=== PATIENT | female | born 1985 | race Caucasian/White ===

== ENCOUNTER 2020-08-04 21:08 | Inpatient (IN) | payer MEDICAID, SELFPAY ==
[~2020-08-04] VITALS: Ht 157.5 cm; Wt 65.8 kg
[2020-08-04 21:25] VITALS: BP 107/62
--- NOTE | 2020-08-04 21:25 | NUR ---
patient bib for RUQ abdominal pain rad. to the right upper back x 1 hour ago. denies n/v/d. no changes in appetite. last meal was an hour ago. A/ox4; GCS 15 pain is a 10/10 pain; skin slightly jaundiced, but intact. breathing unlabored and symmetrical. abdomen soft and nondistended; bowel sounds heard on all four quadrants. slight tenderness upon palpation on the RUQ. ambulates with steady gait. present. ERMD made aware of status. NKDA Hx: Valve replacement 02/2020
[2020-08-04] MEDS ORDERED: ONDANSETRON 4 MG ODT PO ONE (22:10)
[2020-08-04] MEDS ORDERED: HYDROcodone/APAP 5/325 MG 1 TAB TAB PO ONE (22:10)
[2020-08-04] MEDS ORDERED: FAMOTIDINE 20 MG TAB PO ONE (22:15)
[2020-08-04 22:42] LABS: BASOPHILS # (AUTO) 0.1 K/uL (0.00-0.22); BASOPHILS % (AUTO) 0.7 % (0.0-2.0); EOSINOPHILS # (AUTO) 0.1 K/uL (0-0.4); EOSINOPHILS % (AUTO) 0.6 % (0.0-4.0); HEMATOCRIT 29.1 % (36-48); HEMOGLOBIN 8.9 g/dL (12.0-16.0); LYMPHOCYTES # (AUTO) 1.7 K/uL (2.5-16.5); LYMPHOCYTES % (AUTO) 12.5 % (20.5-51.1); MEAN CORPUSCULAR HEMOGLOBIN 23 pg (27-31); MEAN CORPUSCULAR HGB CONC 31 g/dL (33-37); MEAN CORPUSCULAR VOLUME 73.3 fL (80-94); MONOCYTES # (AUTO) 0.7 K/uL (0.8-1.0); MONOCYTES % (AUTO) 5.2 % (1.7-9.3); NEUTROPHILS # (AUTO) 10.8 K/uL (1.8-7.7); PLATELET COUNT (AUTO) 344 K/uL (140-450); RED BLOOD CELL COUNT(AUTO) 3.97 MIL/uL (4.20-5.40); RED CELL DISTRIBUTION WIDTH 16.9 % (11.6-13.7); WHITE BLOOD COUNT (AUTO) 13.3 K/uL (4.8-10.8)
[2020-08-04] MEDS ORDERED: LACTATED RINGERS 1,000 ML IV ONE (22:50)
[2020-08-04] MEDS ORDERED: ONDANSETRON 4 MG/2 ML VIAL IVP ONE (22:50)
[2020-08-04] MEDS ORDERED: MORPHINE SULFATE 4 MG/ML SYR IVP ONE (22:50)
--- NOTE | 2020-08-04 22:55 | NUR ---
patient is in lobby.
--- NOTE | 2020-08-04 22:55 | NUR ---
patient tolerated po meds
[2020-08-04 22:58] LABS: CREATININE 0.7 mg/dL (0.6-1.3); TOTAL BILIRUBIN 0.3 mg/dL (0.0-1.0)
[2020-08-05] MEDS ORDERED: metroNIDAZOLE 500 MG/NS PREMIX 100 ML IV ONE ×2 (00:55→04:22)
[2020-08-05 01:07] LABS: ALBUMIN 3.6 g/dL (3.4-5.0); ANION GAP 14.1 (8-16); CARBON DIOXIDE 24.5 mmol/L (21-32); POTASSIUM 3.6 mmol/L (3.5-5.1)
[2020-08-05] MEDS ORDERED: KETOROLAC 30 MG/ML VIAL IM ONE (02:05)
[2020-08-05] MEDS ORDERED: ONDANSETRON 4 MG ODT PO ONE (02:05)
[2020-08-05 02:38] LABS: PROTHROMBIN TIME 14.9 secs (10.8-13.4)
--- NOTE | 2020-08-05 03:50 | NUR ---
PT MOVED TO CHAIR B
[2020-08-05] MEDS ORDERED: cefTRIAXone 1,000 MG VIAL ONE (03:51)
[2020-08-05] MEDS ORDERED: ONDANSETRON 4 MG/2 ML VIAL ONE (03:51)
[2020-08-05] MEDS ORDERED: MORPHINE SULFATE 4 MG/ML SYR ONE (03:51)
[2020-08-05] MEDS: DEXT 5% / NACL 0.45% 1,000 ML IV SCH ×3 (04:08→22:20)
--- NOTE | 2020-08-05 04:30 | NUR ---
PT SEATED UPRIGHT IN CHAIR. SEEN WITH EYES CLOSED, VISIBLE CHEST RISE AND FALL NOTED. VSS. NO C/O PAIN AT THIS TIME. WILL CONTINUE TO MONITOR.
[2020-08-05] MEDS ORDERED: PIPERACILLIN/TAZOBACTAM 3.375 GM VIAL IV ONE ×2 (05:34→22:03)
[2020-08-05] MEDS: PIPERACILLIN/TAZOBACTAM 3.375 GM in DEXTROSE 5% 50 ML IV SCH ×3 (05:41→22:14)
--- NOTE | 2020-08-05 05:57 | NUR ---
Elizabeth antigen and Novel sent to lab
[2020-08-05] MEDS ORDERED: DOCUSATE SODIUM 100 MG GELCAP PO PRN (06:45)
[2020-08-05] MEDS ORDERED: ZOLPIDEM 5 MG TAB PO PRN (06:45)
[2020-08-05] MEDS ORDERED: ONDANSETRON 4 MG/2 ML VIAL IVP PRN ×2 (06:45→17:25)
[2020-08-05] MEDS ORDERED: LORazepam 2 MG/ML VIAL IM/IVP PRN (06:45)
[2020-08-05] MEDS ORDERED: ACETAMINOPHEN 325 MG TAB PO PRN (06:45)
--- NOTE | 2020-08-05 07:07 | NUR ---
Dr. Alvarez examining patient.
--- NOTE | 2020-08-05 07:10 | NUR ---
PT AAOX4. DENIES ABDOMINAL PAIN AT THIS TIME. NOTHING BY MOUNT.
--- NOTE | 2020-08-05 07:50 | NUR ---
URINE SPECIMEN SENT TO LAB.
--- NOTE | 2020-08-05 09:27 | NUR ---
PT AMB TO BED 12.
--- NOTE | 2020-08-05 10:20 | NUR ---
PT TO NUCLEAR MED SCAN AT THIS TIME WITH TECH.
[2020-08-05 10:41] LABS: BASOPHILS # (AUTO) 0.1 K/uL (0.00-0.22); BASOPHILS % (AUTO) 0.8 % (0.0-2.0); EOSINOPHILS # (AUTO) 0.1 K/uL (0-0.4); EOSINOPHILS % (AUTO) 0.9 % (0.0-4.0); HEMATOCRIT 27.3 % (36-48); HEMOGLOBIN 8.5 g/dL (12.0-16.0); LYMPHOCYTES # (AUTO) 1.7 K/uL (2.5-16.5); LYMPHOCYTES % (AUTO) 21.1 % (20.5-51.1); MEAN CORPUSCULAR HEMOGLOBIN 23 pg (27-31); MEAN CORPUSCULAR HGB CONC 31 g/dL (33-37); MEAN CORPUSCULAR VOLUME 73.4 fL (80-94); MONOCYTES # (AUTO) 0.5 K/uL (0.8-1.0); MONOCYTES % (AUTO) 6.6 % (1.7-9.3); NEUTROPHILS # (AUTO) 5.7 K/uL (1.8-7.7); NEUTROPHILS % (AUTO) 70.6 % (42.2-75.2); PLATELET COUNT (AUTO) 330 K/uL (140-450); RED BLOOD CELL COUNT(AUTO) 3.73 MIL/uL (4.20-5.40); RED CELL DISTRIBUTION WIDTH 17.2 % (11.6-13.7); WHITE BLOOD COUNT (AUTO) 8.1 K/uL (4.8-10.8)
--- NOTE | 2020-08-05 10:41 | NUR ---
SOCIAL WORK NOTE: Patient's Orientation Unable To Assess Information Provided By PATRICIA HARE - Comments SW WAS UNABLE TO MEET PATIENT AT BEDSIDE. SW COMPLETED ASSESSMENT WITH PATIENT'S . Senior Animator, Realtionship and Phone Number VIC HARE [phone] Healthcare Power of Electrical High Tension Tester No Does Patient Have a POLST No Identifying Problems No Social Work Triggers Is A Social Work Consult Needed No Mandate Report Filed No Explanation Of Identifying Problems PATIENT IS A 35-YEAR-OLD FEMALE ADMITTED FOR ACUTE CHOLECYSTITIS. PATIENT HAS NO PERTINENT PMHX. REPORTED NO HX OF SUBSTANCE ABUSE OR MENTAL HEALTH. Admitted From Home Pre-Admission Level Of Functioning Status Independent/Ambulatory Prior Resources/Services Used In Last 12 Months No Prior Resources Used Prior DME No Prior DME Used Dialysis Comments N/A Living Situation Lives With Family House Patient Had Caregiver No Home Support No Caregiver Issues Financial Issues No Known Financial Issue Referral To The Financial Counselor Needed No Factors/Needs No D/C Needs Identified Pt/Rep Participated In Discharge Plan Yes Patient/Family Agress With Discharge Plan Yes Discharge Plan Comments TENTATIVE DISCHARGE PLAN IS FOR PATIENT TO RETURN HOME. DC Plan Status Initiated
[2020-08-05 11:16] LABS: CHOL/HDL RATIO 2.8 (1-4.5); FREE T4 (FREE THYROXINE) 1.33 ng/dL (0.76-1.46); MAGNESIUM 2.6 mg/dL (1.8-2.4); PHOSPHORUS 3.3 mg/dL (2.5-4.9); THYROID STIMULATING HORMONE 4.98 uIU/mL (0.34-3.74)
--- NOTE | 2020-08-05 11:30 | NUR ---
RETURNED FROM SCAN. IN BED, REATTACHED TO CARDIAC MONITORING. VSS.
[2020-08-05] MEDS: MORPHINE SULFATE 2 MG/ML SYR IVP PRN ×2 (11:38→21:58)
[2020-08-05 12:03] LABS: PROTHROMBIN TIME 16.1 secs (10.8-13.4)
[2020-08-05 13:44] LABS: APPEARANCE,URINE CLEAR (CLEAR); BILIRUBIN,URINE NEGATIVE (NEGATIVE); BLOOD, URINE NEGATIVE (NEGATIVE); COLOR,URINE YELLOW (YELLOW); LEUKOCYTE ESTERASE ,URINE NEGATIVE (NEGATIVE); NITRITE, URINE NEGATIVE (NEGATIVE); UGLUCOSE NEGATIVE (NEGATIVE)
[2020-08-05] MEDS ORDERED: ASPI-1129 PO (13:53)
[2020-08-05] MEDS ORDERED: WARF3TAB PO (13:53)
[2020-08-05 14:00] LABS: BARBITURATE, URINE NEGATIVE ng/ml (NEG <=200); BENZODIAZEPINE, URINE NEGATIVE ng/mL (NEG <=200); CANNABINOID, URINE NEGATIVE ng/mL (NEG <=50); COCAINE, URINE NEGATIVE ng/mL (NEG <=300); OPIATE, URINE POSITIVE ng/mL (NEG <=2000); PHENCYCLIDINE SCREEN,URINE NEGATIVE ng/mL (NEG <=25)
--- NOTE | 2020-08-05 14:00 | NUR ---
RESTING COMFORTABLY, NO NEW NEEDS OR CONCERNS.
--- NOTE | 2020-08-05 14:50 | NUR ---
PT TAKEN TO OR, REPORT GIVEN TO MAMADOU GIBSON.
[2020-08-05] MEDS ORDERED: BUPIVACAINE-MPF/EPI 0.5% 30 ML VIAL INJ ONE (16:46)
[2020-08-05] MEDS ORDERED: MIDAZOLAM 2 MG/2 ML VIAL ONE (16:50)
[2020-08-05] MEDS ORDERED: DEXAMETHASONE 4 MG/ML VIAL ONE (16:50)
[2020-08-05] MEDS ORDERED: fentaNYL citrate 0.05 MG/ML VIAL ONE (16:50)
[2020-08-05] MEDS ORDERED: PROPOFOL 200 MG/20 ML VIAL IV ONE (16:50)
[2020-08-05] MEDS ORDERED: LIDOCAINE 2% 100 MG/5 ML SYR IVP ONE (16:50)
[2020-08-05] MEDS ORDERED: SUCCINYLCHOLINE CHLORIDE 200 MG/10 ML VIAL IVP ONE (16:50)
[2020-08-05] MEDS ORDERED: SEVOFLURANE 250 ML BTL INH ONE (16:50)
[2020-08-05] MEDS: LACTATED RINGERS 1,000 ML IV SCH (17:25)
[2020-08-05] MEDS ORDERED: diphenhydrAMINE 50 MG/ML VIAL IVP PRN (17:25)
[2020-08-05] MEDS ORDERED: HYDROmorphone 1 MG/ML AMP IVP PRN (17:25)
[2020-08-05] MEDS: MEPERIDINE 25 MG/ML SYR IVP PRN ×2 (18:13→18:44)
[2020-08-05 19:30] VITALS: BP 123/79
--- NOTE | 2020-08-05 19:30 | NUR ---
RECEIVED REPORT FROM OR NURSE, TYESHA. PT AOX3 ON ROOM AIR. NO S/S RESPIRATORY DISTRESS. NO C/O PAIN AT THIS TIME. IV SITE R HAND 22G PATENT INTACT/ SKIN WARM DRY, HAS 4 SURGICAL INCISIONS WITH DERMABOND, NO DRAINAGE, NO BLEEDING. ORIENTED PT TO ROOM AND HOSPITAL. SAFETY MEASURES IN PLACE. CALL LIGHT WITHIN REACH. WILL CONTINUE TO MONITOR. VS: BP 123/79 TEMP 97.7 HR 82 RR 16 O2 SAT 100%. DX: ACUTE CHOLECYSTITIS, S/P LAP RADHA
--- NOTE | 2020-08-05 21:00 | NUR ---
ASSISTED PT TO BED BOOTH, VOIDED CLEAR YELLOW URINE, PROVIDED ROLANDO CARE. TOLERATED WELL. WILL CONTINUE TO MONITOR
--- NOTE | 2020-08-05 21:58 | NUR ---
PRN MORPHINE GIVEN FOR PT C/O 7/10 PAIN AT SURGICAL INCISION SITE AND ABD, WILL CONTINUE TO MONITOR
[2020-08-06] VITALS: BP 135/77
[2020-08-06] MEDS: LACTATED RINGERS 1,000 ML IV SCH ×3 (01:45→18:25)
[2020-08-06] MEDS: MORPHINE SULFATE 2 MG/ML SYR IVP PRN ×3 (01:56→18:28)
--- NOTE | 2020-08-06 02:05 | NUR ---
PT ASLEEP IN BED, RESPIRATIONS EVEN UNLABORED. NO S/S ACUTE DISTRESS NOTED. WILL CONTINUE TO MONITOR
[2020-08-06 04:00] VITALS: BP 99/59
[2020-08-06] MEDS ORDERED: PIPERACILLIN/TAZOBACTAM 3.375 GM VIAL IV ONE (04:33)
[2020-08-06] MEDS: PIPERACILLIN/TAZOBACTAM 3.375 GM in DEXTROSE 5% 50 ML IV SCH ×3 (04:35→20:42)
--- NOTE | 2020-08-06 07:19 | NUR ---
ENDORSED PT TO DAY RN FOR CONTINUITY OF CARE. PT IS IN STABLE CONDITION
--- NOTE | 2020-08-06 07:20 | NUR ---
RECEIVED REPORT FROM NIGHTSHIFT NURSE. PT RESTING IN BED. ABLE TO MAKE NEEDS KNOWN. RESPIRATIONS EVEN AND UNLABORED WITH NO SOB OR RESPIRATORY DISTRESS. SKIN WARM AND DRY TO TOUCH. IV IN R HAND 22G IS CLEAN, DRY, AND INTACT. SAFETY MEASURES IN PLACE. WILL CONTINUE TO MONITOR
--- NOTE | 2020-08-06 07:28 | NUR ---
PATIENT HAS BEEN SCREENED AND CATEGORIZED MODERATE NUTRITION RISK. PATIENT WILL BE SEEN WITHIN 3-5 DAYS OF ADMISSION. 08/08/20 - 08/10/20 LUIS MIGUEL ANDRADE MBA, RD
[2020-08-06 08:00] VITALS: BP 110/65
[2020-08-06] MEDS: DEXT 5% / NACL 0.45% 1,000 ML IV SCH ×2 (08:20→18:26)
--- NOTE | 2020-08-06 09:10 | NUR ---
PT RESTING IN BED. ABLE TO MAKE NEEDS KNOWN. RESPIRATIONS EVEN AND UNLABORED WITH SOB OR RESPIRATORY DISTRESS. SAFETY MEASURES IN PLACE. WILL CONTINUE TO MONITOR
[2020-08-06 10:05] LABS: MAGNESIUM 2.2 mg/dL (1.8-2.4); PHOSPHORUS 3.7 mg/dL (2.5-4.9)
[2020-08-06 10:08] LABS: ANION GAP 12.3 (8-16); CARBON DIOXIDE 25.7 mmol/L (21-32); CREATININE 0.7 mg/dL (0.6-1.3)
[2020-08-06 10:19] LABS: BASOPHILS % (AUTO) 0.2 % (0.0-2.0); HEMATOCRIT 28.2 % (36-48); HEMOGLOBIN 8.8 g/dL (12.0-16.0); LYMPHOCYTES # (AUTO) 0.7 K/uL (2.5-16.5); LYMPHOCYTES % (AUTO) 6.2 % (20.5-51.1); MEAN CORPUSCULAR HEMOGLOBIN 23 pg (27-31); MEAN CORPUSCULAR HGB CONC 31 g/dL (33-37); MEAN CORPUSCULAR VOLUME 72.9 fL (80-94); MONOCYTES # (AUTO) 0.4 K/uL (0.8-1.0); MONOCYTES % (AUTO) 3.9 % (1.7-9.3); NEUTROPHILS # (AUTO) 9.9 K/uL (1.8-7.7); NEUTROPHILS % (AUTO) 89.7 % (42.2-75.2); PLATELET COUNT (AUTO) 336 K/uL (140-450); RED BLOOD CELL COUNT(AUTO) 3.87 MIL/uL (4.20-5.40); RED CELL DISTRIBUTION WIDTH 17.3 % (11.6-13.7)
--- NOTE | 2020-08-06 12:17 | NUR ---
PT COMPLAINED OF SEVERE PAIN. PRN MORPHINE ADMINISTERED PRESCRIBED PER MD ORDER. ADMINISTERED SCHED MED PRESCRIBED PER MD ORDER. PT TOLERATED WELL. MEDICATION EDUCATION PERFORMED. PT VERBALIZE UNDERSTANDING. SAFETY MEASURES IN PLACE. WILL CONTINUE TO MONITOR
--- NOTE | 2020-08-06 13:06 | NUR ---
ADMINISTERED SCHED MED PRESCRIBED PER MD ORDER. PT TOLERATED WELL. MEDICATION EDUCATION PERFORMED. PT VERBALIZE UNDERSTANDING. SAFETY MEASURES IN PLACE. WILL CONTINUE TO MONITOR
[2020-08-06 14:04] LABS: ANION GAP 15.8 (8-16); CARBON DIOXIDE 23.2 mmol/L (21-32); CREATININE 0.7 mg/dL (0.6-1.3)
[2020-08-06 14:10] LABS: ALBUMIN 3.6 g/dL (3.4-5.0); TOTAL BILIRUBIN 0.5 mg/dL (0.0-1.0)
--- NOTE | 2020-08-06 15:04 | NUR ---
PT RESTING IN BED. ABLE TO MAKE NEEDS KNOWN. RESPIRATIONS EVEN AND UNLABORED WITH SOB OR RESPIRATORY DISTRESS. SAFETY MEASURES IN PLACE. WILL CONTINUE TO MONITOR
[2020-08-06 16:00] VITALS: BP 98/62
--- NOTE | 2020-08-06 17:15 | NUR ---
HOURLY ROUNDING. PT RESTING IN BED. ABLE TO MAKE NEEDS KNOWN. RESPIRATIONS EVEN AND UNLABORED WITH SOB OR RESPIRATORY DISTRESS. SAFETY MEASURES IN PLACE. WILL CONTINUE TO MONITOR
--- NOTE | 2020-08-06 18:30 | NUR ---
PT COMPLAINED OF SEVERE PAIN. PRN MORPHINE ADMINISTERED PRESCRIBED PER MD ORDER. PT TOLERATED WELL. MEDICATION EDUCATION PERFORMED. PT VERBALIZE UNDERSTANDING. SAFETY MEASURES IN PLACE. WILL CONTINUE TO MONITOR
--- NOTE | 2020-08-06 19:10 | NUR ---
ENDORSED TO NIGHTSHIFT FOR CONTINUITY OF CARE. PT IS STABLE
--- NOTE | 2020-08-06 19:15 | NUR ---
RECEIVED BEDSIDE REPORT FROM DAY SHIFT NURSE FOR CONTINUITY OF CARE. PT IS AWAKE AND ALERT, A7OX4. ON RA WITH BREATHING UNLABORED. PT IS AMBULATORY. DENIES PAIN. SKIN IS WARM AND DRY. FOUR INCISIONS WITH DERMABOND IN PLACE. S/P LAP CHOLEY. IV IS IN THE RIGHT AND LEFT HAND, RUNNING FLUIDS. PLAN OF CARE DISCUSSED. PT IS STABLE.
[2020-08-06 20:00] VITALS: BP 102/60
--- NOTE | 2020-08-06 21:30 | NUR ---
PT IS AWAKE. WATCHING TV IN BED. NO DISTRESS OR PAIN NOTED. FLUIDS ARE INFUSING THROUGH IV. PT IS STABLE.
[2020-08-06] MEDS: HYDROcodone/APAP 5/325 MG 1 TAB TAB PO PRN (23:10)
--- NOTE | 2020-08-06 23:10 | NUR ---
PT STATES SHE HAS PAIN AT A SCALE OF 6/10 IN THE ABDOMEN. PT WAS GIVEN NORCO FOR PAIN. WILL CONTINUE TO MONITOR PAIN.
--- NOTE | 2020-08-07 01:30 | NUR ---
ROUNDED ON PT. SHE IS SLEEPING. CHEST RISE AND FALL IS SYMMETRICAL. PT IS STABLE. NO PAIN NOTED.
[2020-08-07] MEDS: LACTATED RINGERS 1,000 ML IV SCH ×2 (02:45→11:05)
--- NOTE | 2020-08-07 03:30 | NUR ---
PT IS AWAKE, LAYING IN BED. STATES SHE DOES NOT HAVE PAIN RIGHT NOW. IV FLUIDS ARE INFUSING. BREATHING IS REGULAR AND EVEN. PT IS STABLE.
[2020-08-07] MEDS: DEXT 5% / NACL 0.45% 1,000 ML IV SCH (04:20)
[2020-08-07] MEDS: PIPERACILLIN/TAZOBACTAM 3.375 GM in DEXTROSE 5% 50 ML IV SCH ×2 (04:35→13:04)
--- NOTE | 2020-08-07 05:30 | NUR ---
PT IS ASLEEP. BELONGINGS ARE AT THE BEDSIDE WITHIN REACH. CHEST RISE AND FALL IS SYMMETRICAL. NO PAIN OR DISTRESS NOTED.
[2020-08-07 06:31] LABS: BASOPHILS % (AUTO) 0.6 % (0.0-2.0); EOSINOPHILS % (AUTO) 0.4 % (0.0-4.0); HEMATOCRIT 23.5 % (36-48); HEMOGLOBIN 7.3 g/dL (12.0-16.0); LYMPHOCYTES # (AUTO) 2.3 K/uL (2.5-16.5); LYMPHOCYTES % (AUTO) 27.3 % (20.5-51.1); MEAN CORPUSCULAR HEMOGLOBIN 23 pg (27-31); MEAN CORPUSCULAR HGB CONC 31 g/dL (33-37); MEAN CORPUSCULAR VOLUME 73.1 fL (80-94); MONOCYTES # (AUTO) 0.5 K/uL (0.8-1.0); MONOCYTES % (AUTO) 5.4 % (1.7-9.3); NEUTROPHILS # (AUTO) 5.6 K/uL (1.8-7.7); NEUTROPHILS % (AUTO) 66.3 % (42.2-75.2); PLATELET COUNT (AUTO) 277 K/uL (140-450); RED BLOOD CELL COUNT(AUTO) 3.21 MIL/uL (4.20-5.40); RED CELL DISTRIBUTION WIDTH 17.6 % (11.6-13.7); WHITE BLOOD COUNT (AUTO) 8.4 K/uL (4.8-10.8)
--- NOTE | 2020-08-07 07:10 | NUR ---
RECEIVED REPORT FROM NIGHTSHIFT NURSE. PT RESTING IN BED. ABLE TO MAKE NEEDS KNOWN. RESPIRATIONS EVEN AND UNLABORED WITH NO SOB OR RESPIRATORY DISTRESS. SKIN WARM AND DRY TO TOUCH. IV SITE IN L HAND 24G AND R HAND 22G IS CLEAN, DRY, AND INTACT. SAFETY MEASURES IN PLACE. WILL CONTINUE TO MONITOR
[2020-08-07 07:31] LABS: PHOSPHORUS 3.6 mg/dL (2.5-4.9)
[2020-08-07 07:33] LABS: ANION GAP 10.4 (8-16); CREATININE 0.7 mg/dL (0.6-1.3); POTASSIUM 3.4 mmol/L (3.5-5.1)
--- NOTE | 2020-08-07 07:39 | NUR ---
ENDORSED PT TO DAY SHIFT NURSE FOR CONTINUITY OF CARE. PT IS STABLE AT THIS TIME. PLAN OF CARE DISCUSSED.
[2020-08-07 08:00] VITALS: BP 90/50
[2020-08-07] MEDS: HYDROcodone/APAP 5/325 MG 1 TAB TAB PO PRN (10:17)
--- NOTE | 2020-08-07 10:24 | NUR ---
PT COMPLAINED OF MODERATE PAIN. PRN NORCO ADMINISTERED PRESCRIBED. MEDICATION EDUCATION PERFORMED. PT VERBALIZED UNDERSTANDING. SAFETY MEASURES IN PLACE. WILL CONTINUE TO MONITOR
--- NOTE | 2020-08-07 12:15 | NUR ---
PT CALLED AND WANTED TO SPEAK WITH NURSE. UPDATE GIVEN TO . VERBALIZED UNDERSTANDING. SAFETY MEASURES IN PLACE. WILL CONTINUE TO MONITOR
[2020-08-07 12:43] LABS: PROTHROMBIN TIME 15.5 secs (10.8-13.4)
--- NOTE | 2020-08-07 13:04 | NUR ---
ADMINISTERED SCHED MED PRESCRIBED PER MD ORDER. PT TOLERATED WELL. MEDICATION EDUCATION PERFORMED. PT VERBALIZED UNDERSTANDING. SAFETY MEASURES IN PLACE. WILL CONTINUE TO MONITOR
--- NOTE | 2020-08-07 13:30 | NUR ---
PT AWARE OF DISCHARGE AND WOULD LIKE TO GO HOME BEFORE DINNER. SAFETY MEASURES IN PLACE. WILL CONTINUE TO MONITOR
[2020-08-07 14:07] VITALS: BP 90/50
--- NOTE | 2020-08-07 14:29 | NUR ---
DC PLAN[age] YRS OLD FEMALE PATIENT WAS ADMITTED FROM HOME WITH A DX OF ACUTE CHOLECYSTITIS. DR AREVALO PERFORMED LAP RADHA PT TOLERATED WELL ,CLEARED BY SURGEON . DC PALN TO GO HOME WHEN STABLE CM TO FOLLOW
--- NOTE | 2020-08-07 15:00 | NUR ---
WILL BE PICKING UP PATIENT AND WILL BE HERE WITHIN AN HOUR. WILL CONTINUE TO MONITOR
--- NOTE | 2020-08-07 16:00 | NUR ---
WENT OVER DISCHARGE INSTRUCTIONS WITH PT USING VICE PRESIDENT [employer] PHONE ROSETTE [phone]. PT SIGNED APPROPRIATE DOCUMENTS. INSTRUCTED PT TO VISIT PCP AND DR. AREVALO ORDERED. PT VERBALIZED UNDERSTANDING. TOOK PICTURES OF SURGICAL INCISIONS AND PLACED IN CHART. REMOVED INTACT IV CANNULA AND ID BAND. PT CHANGED INTO HER OWN CLOTHES AND GATHERED HER BELONGINGS. PROVIDED SURGICAL MASK. SAFETY MEASURES IN PLACE WILL CONTINUE TO MONITOR
[2020-08-07] MEDS ORDERED: WARFARIN 1 MG TAB PO SCH (17:00)
== END 2020-08-07 16:15 | disposition home or self-care (01) | DRG 263 ==
LOC: MED 21:08 → MTU 08-05 02:21
PROVIDERS: ADMIT Family Medicine; ATTEND Family Medicine
PROC: 0FT44ZZ Resection of Gallbladder, Percutaneous Endoscopic Approach (ICD-10-PCS; 2020-08-05)
PROC: 30233K1 Transfusion of Nonautologous Frozen Plasma into Peripheral Vein, Percutaneous Approach (ICD-10-PCS; principal; 2020-08-05 15:30)
DX: K80.62 Calculus of gallbladder and bile duct with acute cholecystitis without obstruction (principal); D68.69 Other thrombophilia; E83.41 Hypermagnesemia; R77.8 Other specified abnormalities of plasma proteins; I51.7 Cardiomegaly; Z20.822 Contact with and (suspected) exposure to COVID-19; Z98.891 History of uterine scar from previous surgery; K80.60 Calculus of gallbladder and bile duct with cholecystitis, unspecified, without obstruction
CPT/HCPCS: 36415; 36430; 71045; 76705; 78445; 80048; 80053; 80305; 81003; 82150; 83036; 83690; 83735; 83880; 84100; 84439; 84443; 84484; 84703; 85025; 85610; 85730; 86886; 86900; 86901; 86920; 87081; 93005; 96365; 96367; 96375; 99285; A9510; J0330; J0696; J1100; J2001; J2175; J2250; J2270; J2405; J2543; J2704; J3010; J3490; J7060; P9017; Q0162; U0003